=== PATIENT | male | born 1990 | race Caucasian/White ===

== ENCOUNTER 2018-01-15 10:32 | Emergency (ER) | payer SELFPAY ==
[~2018-01-15] VITALS: Ht 188 cm; Wt 86.2 kg
[2018-01-15 10:35] VITALS: BP 112/82
--- NOTE | 2018-01-15 11:30 | NUR ---
FINGER SPLINT PLACED BY E R TECH. DC INSTRUCTIONS GIVEN.VERBALIZED UNDERTANDING, ALL QUESTIONS ANSWERED.
== END 2018-01-15 11:32 | disposition home or self-care (01) ==
LOC: ER 10:33
DX: S63.611A Unspecified sprain of left index finger, initial encounter (principal); X58.XXXA Exposure to other specified factors, initial encounter; Y93.89 Activity, other specified; Y92.89 Other specified places as the place of occurrence of the external cause; Y99.8 Other external cause status
CPT/HCPCS: 29130; 73140; 99284; A4606; Z7610